=== PATIENT | female | born 1955 | race Caucasian/White ===

== ENCOUNTER → 2022-11-30 | Outpatient (CLI) | payer OTHER | END | disposition home or self-care (01) | LOC: RESCLI 12:45 | PROVIDERS: ATTEND Student in an Organized Health Care Education/Training Program | DX: J45.909 Unspecified asthma, uncomplicated (principal); G43.909 Migraine, unspecified, not intractable, without status migrainosus; C73 Malignant neoplasm of thyroid gland; F41.9 Anxiety disorder, unspecified; K21.9 Gastro-esophageal reflux disease without esophagitis; Z79.899 Other long term (current) drug therapy; Z98.890 Other specified postprocedural states ==